=== PATIENT | female | born 1945 | race Caucasian/White ===

== ENCOUNTER 2020-04-22 10:25 | Outpatient (CLI) | payer MEDICARE, SELFPAY ==
--- NOTE | 2020-04-22 10:47 | USCV_ITS ---
Milind Lachelle Age: 74 Gender: F : 1945 Exam Date: 04/22/2020 10:58 Ordering Phys: Lizeth Knutson CLIENT ACCOUNT ASSISTANT-BC XX Technologist: Bret Joseph Exam Location: [facility] [place]ication: BLE PAIN HISTORY: Lower extremity pain. PROCEDURES: Venous duplex imaging was performed in bilateral lower extremities. The following venous structures were evaluated: common femoral vein, profunda vein, proximal portion of the greater saphenous vein, superficial femoral vein, and the popliteal vein. In addition, the posterior tibial veins were evaluated. In addition, the posterior tibial and peroneal trunk were evaluated. FINDINGS: No evidence of DVT seen in any vessel visualized at this time. CONCLUSIONS No evidence of right lower extremity DVT. No evidence of left lower extremity DVT. Septated fluid collection left groin measuring 2.6 x 4.0x 4.8cm may represent seroma. Recommend clinical correlation [facility] MD (Electronically Signed) Final Date: 22 April 2020 17:23 S
== END 2020-04-22 10:26 | disposition home or self-care (01) ==
LOC: RAD 10:35
PROVIDERS: PCP Nurse Practitioner Family; Visit Provider Nurse Practitioner Family
DX: M79.604 Pain in right leg (principal); M79.605 Pain in left leg; R68.89 Other general symptoms and signs
CPT/HCPCS: 93970

== ENCOUNTER 2020-05-22 10:39 | Outpatient (CLI) | payer MEDICARE, SELFPAY ==
--- NOTE | 2020-05-22 14:45 | CT_ITS ---
WS: [id number] CT HEAD NONCONTRAST HISTORY: S09.90XA - Unspecified injury of head, initial encounter TECHNIQUE: Contiguous axial imaging performed through the brain in 2.5 mm imaging. Bone and soft tiss ue windows. All CT scans at [facility] use at least one of these dose optimization techniq ues: automated exposure control; mA and/or kV adjustment per patient size (includes targeted exams wh ere dose is matched to clinical indication); or iterative reconstruction. DLP: 925.91 mGycm COMPARISON: None available. No acute intracranial hemorrhage, midline shift or mass effect. Mild bilateral frontal atrophy. Appropriate amount of atrophy for the patient's age. No prior infarct . There is a small retrocerebellar arachnoid cyst without mass effect. Ventricles: Normal size with no hydrocephalus. Paranasal sinuses: Mild bilateral ethmoid air cell opacifications. No air-fluid levels. Mastoid air cells: Well pneumatized. Calvarium and scalp: Skull is intact with no soft tissue edema or swelling. CT/CT head wo con* [id number] IMPRESSION: 1. No acute intracranial hemorrhage or edema. 2. No fracture. 3. Mild bilateral frontal atrophy is appropriate for patient's age.
== END 2020-05-22 10:40 | disposition home or self-care (01) ==
LOC: RADWPI 10:43
PROVIDERS: PCP Nurse Practitioner Family; Visit Provider Emergency Medicine
DX: S09.90XA Unspecified injury of head, initial encounter (principal); R42 Dizziness and giddiness; X58.XXXA Exposure to other specified factors, initial encounter
CPT/HCPCS: 70450; 81000